=== PATIENT | male | born 1980 | race Caucasian/White ===

== ENCOUNTER 2019-01-31 03:34 | Emergency (ER) | payer OTHER ==
[~2019-01-31] VITALS: Ht 180.3 cm; Wt 81.7 kg
[~2019-01-31 03:34] MED LIST: CLINDAMYCIN HC300 MG PO; DUONEB 2.5-0.5 M3 ML IH; NOHOMEMEDICATIONS; PREDNISONE 10 M10 M1 PO; PREDNISONE 10 M10 MG PO; PRILOSEC 20 MG20 MG PO; PROVENTIL; PROVENTIL IH; SINGULAIR 10 MG10 M1 PO; SYMBICORT160 MCG/4. INH; TRAMADOL 50 MG50 MG PO
[2019-01-31 03:44] VITALS: BP 137/91
[2019-01-31] MEDS ORDERED: TRIMETHOPRIM /P10 M1 OPHTHALMIC (04:11)
== END 2019-01-31 04:14 | disposition home or self-care (01) ==
LOC: ER 03:34
DX: T15.92XA Foreign body on external eye, part unspecified, left eye, initial encounter (principal); J45.909 Unspecified asthma, uncomplicated; G47.00 Insomnia, unspecified; Z91.011 Allergy to milk products; X58.XXXA Exposure to other specified factors, initial encounter

== ENCOUNTER 2019-06-17 00:36 | Emergency (ER) | payer OTHER ==
[~2019-06-17] VITALS: Ht 180.3 cm; Wt 86.2 kg
[~2019-06-17 00:36] MED LIST changes: +TRIMETHOPRIM /P10 M1 OPHTHALMIC
[2019-06-17 00:38] VITALS: BP 125/82
[2019-06-17] MEDS ORDERED: MEDROLDOSEPACK PO (01:05)
== END 2019-06-17 01:29 | disposition home or self-care (01) ==
LOC: ER 00:36
DX: L25.5 Unspecified contact dermatitis due to plants, except food (principal); J45.909 Unspecified asthma, uncomplicated; Z88.8 Allergy status to other drugs, medicaments and biological substances

== ENCOUNTER 2019-09-25 20:04 | Emergency (ER) | payer OTHER ==
[~2019-09-25] VITALS: Ht 180.3 cm; Wt 83.9 kg
[~2019-09-25 20:04] MED LIST changes: +MEDROLDOSEPACK PO
[2019-09-25] MEDS ORDERED: NEO-BACIT-POLY3.5 GM OPHTHALMIC (20:48)
[2019-09-25] MEDS ORDERED: NORCO 5-325 TA1 EAC1 PO (20:49)
[2019-09-25 20:53] VITALS: BP 147/101
== END 2019-09-25 21:10 | disposition home or self-care (01) ==
LOC: ER 20:04
DX: S05.02XA Injury of conjunctiva and corneal abrasion without foreign body, left eye, initial encounter (principal); J45.909 Unspecified asthma, uncomplicated; Z87.01 Personal history of pneumonia (recurrent); Z91.011 Allergy to milk products; X58.XXXA Exposure to other specified factors, initial encounter; Y93.89 Activity, other specified; Y92.89 Other specified places as the place of occurrence of the external cause; Y99.8 Other external cause status